=== PATIENT | male | born 1955 | race Two or more races ===

== ENCOUNTER 2017-03-06 07:32 | Emergency (ER) | payer SELFPAY ==
[2017-03-06 07:37] VITALS: BMI 25.0
[2017-03-06 07:41] VITALS: BP 136/94; PULSE 113; RESP 18; TEMP 97.9; O2SAT 99
== END 2017-03-06 07:54 | disposition left against medical advice (07) ==
LOC: ED 07:32
DX: Z02.89 Encounter for other administrative examinations (principal); Z00.00 Encounter for general adult medical examination without abnormal findings